=== PATIENT | male | born 1995 | race Caucasian/White ===

== ENCOUNTER 2020-03-31 13:19 | Emergency (ER) | payer OTHER ==
[2020-03-31 13:23] VITALS: TEMP 97.6
[2020-03-31] MEDS ORDERED: LIDOCAINE 1% INJ 10MG/ML (20 ML MDV) SQ STA (13:50)
--- NOTE | 2020-03-31 15:17 | ED ---
General Adult HPI - General Chief complaint: Wound/Laceration Stated complaint: Left foot lac Time Seen by Provider: 03/31/20 13:46 Source: patient, RN notes reviewed, old records reviewed Mode of arrival: wheelchair Limitations: no limitations - History of Present Illness Initial comments: 24-year-old male patient to ED for evaluation of laceration between second and third toe. On the left foot. Patient reports that he was in the shower when his dog began fighting with the cat. He reports that he ran out and he slipped. His foot hit a piece of metal. He forces his dog also stepped on the foot. He believes of laceration is likely not from the dog. He did fall to the ground. Denies any head or his neck or any other injuries or complaints. Systemic: Pt denies fatigue, fever/chills, rash. Pt denies weakness, night sweats, weight loss. Neuro: Pt denies headache, visual disturbances, syncope or pre-syncope. HEENT: Pt denies ocular discharge or irritation, otalgia, rhinorrhea, pharyngitis or notable lymphadenopathy. Cardiopulmonary: Pt denies chest pain, SOB, heart palpitations, dyspnea on exertion. Abdominal/GI: Pt denies abdominal pain, n/v/d. : Pt denies dysuria, burning w/ urination, frequency/urgency. Denies new onset urinary or bowel incontinence. MSK: Pt denies myalgia, loss of strength or function in extremities. Neuro: Pt denies new onset weakness, paresthesias. - Related Data Home Medications Medication Instructions Recorded Confirmed No Known Home Medications 07/04/14 07/04/14 Allergies Allergy/AdvReac Type Severity Reaction Status Date / Time No Known Allergies Allergy Verified 03/31/20 13:23 Review of Systems ROS Statement: Those systems with pertinent positive or pertinent negative responses have been documented in the HPI. ROS Other: All systems not noted in ROS Statement are negative. Past Medical History Past Medical History: No Reported History History of Any Multi-Drug Resistant Organisms: None Reported Past Surgical History: No Surgical Hx Reported Past Psychological History: No Psychological Hx Reported Smoking Status: Vaper Past Alcohol Use History: None Reported Past Drug Use History: Marijuana General Exam - General Exam Comments Initial Comments: Constitutional: NAD, AOX3, Pt has pleasant affect. HEENT: NC/AT, trachea midline, neck supple, no lymphadenopathy. External ears appear normal, without discharge. Mucous membranes moist. Eyes PERRLA, EOM intact. There is no scleral icterus. No pallor noted. Cardiopulmonary: RRR, no murmurs, rubs or gallops, no JVD noted. Lungs CTAB in anterior and posterior diaz. No peripheral edema. Abdominal exam: Abdomen soft and non-distended. Abdomen non-tender to palpation in all 4 quadrants. Bowel sounds active in LLQ. No hepatosplenomegaly. No ecchymosis Neuro: CN II-XII intact. No nuchal rigidity. No raccon eyes, no pearson sign, no hemotympanum. No cervical spinal tenderness. No hematoma. MSK: Full active ROM in upper and lower extremities, 5/5 stregnth. 1cm laceration between second and third toe. Full active ROM of toes. Neurovascularly intact. Irrigated. Repaired with 3 simple interrupted sutures. No tenderness to foot. Limitations: no limitations Course Vital Signs 03/31/20 13:21 Temperature 97.6 F Pulse Rate 118 H Respiratory 18 Rate Blood Pressure 114/76 O2 Sat by Pulse 100 Oximetry Medical Decision Making - Medical Decision Making 24 year old male patiento ED for evaluation of fall with toe laceration. Pt is declining to update tetanus today. Declines xray of foot. No tenderness to foot. Laceration was repaired. After laceration repair the unit that holds the otoscope did fall off of the wall partially striking the patient in the forhead. It appeared to be a glancing blow off of the forehead. No loss of consciousness. Pt is declining any headache or changes in vision. No neck pain. Neurologic exam is intact. Patient is requesting discharge. Patient is decling CT or observation states he will return to ED with any worsening symptoms. Will follow up with PCP tomorrow. Case disucssed with Dr. Cortez. Disposition Clinical Impression: Laceration Disposition: HOME SELF-CARE Condition: Stable Instructions (If sedation given, give patient instructions): Laceration (ED) Additional Instructions: Follow up with PCP tomorrow. Return to ED with any worsening symptoms. Please return for suture removal: Please monitor for signs and symptoms of infection including: redness, warmth, drainage, discharge. Please return to ED if these signs or symptoms occur, new signs or symptoms develop or if condition worsens in anyway. Is patient prescribed a controlled substance at d/c from ED?: No Referrals: None,Stated [Primary Care Provider] - 1-2 days Shankar Reese [STAFF PHYSICIAN] - 1-2 days Anahy Diaz MD [REFERRING] - 1-2 days
[2020-03-31 16:19] VITALS: BP 104/54; PULSE 92; RESP 16
== END 2020-03-31 15:43 | disposition home or self-care (01) ==
LOC: EC 13:19
DX: S91.312A Laceration without foreign body, left foot, initial encounter (principal); F17.290 Nicotine dependence, other tobacco product, uncomplicated; W01.198A Fall on same level from slipping, tripping and stumbling with subsequent striking against other object, initial encounter; Y92.009 Unspecified place in unspecified non-institutional (private) residence as the place of occurrence of the external cause
CPT/HCPCS: 99283; 12001; J2001